=== PATIENT | male | born 1980 | race Caucasian/White ===

== ENCOUNTER 2019-07-09 12:41 | Emergency (ER) | payer BC ==
[~2019-07-09] VITALS: Ht 167.6 cm; Wt 77.1 kg
--- NOTE | 2019-07-09 12:43 | NUR ---
Patient to ER bed 06 to gown for evaluation. Side rails up.
--- NOTE | 2019-07-09 12:46 | NUR ---
Pt brought by self, A&Ox4, pt presents to ER with R upper arm pain radiating to R shoulder and R upper back, skin pink and warm,cap refill <3, VSS.
[2019-07-09 13:00] VITALS: BP_SYST 159
[2019-07-09] MEDS ORDERED: ASPIRIN 81 MG TAB.CHEW PO ONE (13:30)
--- NOTE | 2019-07-09 15:02 | NUR ---
BERT Oliva examining patient.
[2019-07-09] MEDS ORDERED: KETOROLAC TROMETHAMINE 60 MG/2 ML VIAL IM ONE (15:30)
[2019-07-09 15:34] LABS: CALCIUM 8.8 mg/dL (8.4-11.0); CREATININE 0.87 mg/dL (0.55-1.30); POTASSIUM 3.5 mmol/L (3.5-5.1)
[2019-07-09 15:35] LABS: BASOPHILS % (AUTO) 0.7 % (0.0-2.0); EOSINOPHILS % (AUTO) 0.6 % (0.0-4.0); HEMATOCRIT 49.3 % (36-54); HEMOGLOBIN 17.1 g/dL (14.0-18.0); LYMPHOCYTES # (AUTO) 0.8 K/uL (1.0-5.5); MEAN CORPUSCULAR HEMOGLOBIN 33 pg (27-31); MEAN CORPUSCULAR HGB CONC 35 % (32-36); MEAN CORPUSCULAR VOLUME 96 fL (79.0-98.0); MONOCYTES # (AUTO) 0.2 K/uL (0.0-1.0); MONOCYTES % (AUTO) 5.4 % (1.7-9.3); NEUTROPHILS # (AUTO) 3.1 K/uL (1.8-7.7); NEUTROPHILS % (AUTO) 74.3 % (40.0-70.0); PLATELET COUNT (AUTO) 118 K/uL (130-430); RED BLOOD CELL COUNT(AUTO) 5.16 MIL/uL (4.2-6.2); WHITE BLOOD COUNT (AUTO) 4.2 K/uL (4.8-10.8)
--- NOTE | 2019-07-09 16:10 | NUR ---
ER TAWNYA Oliva re examining patient and discussing results
--- NOTE | 2019-07-09 17:02 | NUR ---
Patient given written and verbal discharge instructions and verbalizes understanding. ER MD discussed with patient the results and treatment provided. Patient in stable condition. ID arm band removed. No Rx given. Patient educated on pain management and to follow up with PMD in 2-3 days. Pain Scale 0/10 Opportunity for questions provided and answered. Medication side effect fact sheet provided.
--- NOTE | 2019-07-15 15:21 | NUR ---
Vamsi diez in ED - 07/15/19 at 1816 by [email or web address] BERT Oliva examining patient.
[2019-07-15 17:02] VITALS: BP_SYST 142
--- NOTE | 2019-07-15 17:02 | NUR ---
Note leninone in EDM - 07/15/19 at 1815 by [email or web address] Patient given written and verbal discharge instructions and verbalizes understanding. ER discussed with patient the results and treatment provided. Patient in stable condition. ID arm band removed. No Rx given. Patient educated on pain management and to follow up with PMD in 2-3 days. Pain Scale 0/10 Opportunity for questions provided and answered. Medication side effect fact sheet provided.
== END 2019-07-09 19:30 | disposition home or self-care (01) ==
LOC: SED 12:41
DX: R07.89 Other chest pain (principal); R00.0 Tachycardia, unspecified; R03.0 Elevated blood-pressure reading, without diagnosis of hypertension
CPT/HCPCS: 36415; 71045; 80048; 84484; 85025; 85379; 93005; 96372; 99284; J1885

== ENCOUNTER 2023-01-22 11:55 | Emergency (ER) | payer BC ==
[~2023-01-22] VITALS: Ht 170.2 cm; Wt 79.4 kg
[2023-01-22 11:59] VITALS: BP_SYST 163
--- NOTE | 2023-01-22 14:48 | NUR ---
PT BIB SELF AWAKE AND ALERT AOX4, NO SOB OR DISTRESS. PT C/O CHEST PAIN ON AND OFF FOR X 5DAYS. PT HAS HX OF GERD, LIVER CHIROOSIS, BLADDER DISEASE. PT DENIES SX. PT WAS SINUS TACHY AT 110 BPM AT ARRIVAL TO ER BED.
--- NOTE | 2023-01-22 14:55 | NUR ---
Patient placed in ER BED 7 for MD evaluation PER DOCUMENTATION.
--- NOTE | 2023-01-22 15:12 | NUR ---
MD DR JEFF AT BEDSIDE
[2023-01-22 18:37] LABS: BASOPHILS % (AUTO) 0.4 % (0.0-2.0); EOSINOPHILS % (AUTO) 0.4 % (0.0-4.0); HEMOGLOBIN 17.2 g/dL (14.0-18.0); LYMPHOCYTES # (AUTO) 1.5 K/uL (1.0-5.5); LYMPHOCYTES % (AUTO) 22.3 % (20.5-51.5); MEAN CORPUSCULAR HEMOGLOBIN 32 pg (27-31); MEAN CORPUSCULAR HGB CONC 34 % (32-36); MEAN CORPUSCULAR VOLUME 93 fL (79.0-98.0); MONOCYTES # (AUTO) 0.4 K/uL (0.0-1.0); MONOCYTES % (AUTO) 5.5 % (1.7-9.3); NEUTROPHILS # (AUTO) 4.8 K/uL (1.8-7.7); NEUTROPHILS % (AUTO) 71.4 % (40.0-70.0); PLATELET COUNT (AUTO) 139 K/uL (130-430); RED BLOOD CELL COUNT(AUTO) 5.39 MIL/uL (4.2-6.2); WHITE BLOOD COUNT (AUTO) 6.7 K/uL (4.8-10.8)
[2023-01-22 18:41] LABS: ALANINE AMINOTRANSFERASE 24 U/L (12-78); ALBUMIN 4.4 g/dL (3.4-4.8); ANION GAP 9 (5-15); ASPARTATE AMINOTRANSFERASE 25 U/L (10-37); CALCIUM 8.8 mg/dL (8.4-11.0); CHLORIDE 102 mmol/L (98-107); CREATININE 0.83 mg/dL (0.55-1.30); GFR AFRICAN AMERICAN 132 mL/min (>90); GLUCOSE 109 mg/dL (70-99); TOTAL BILIRUBIN 1.2 mg/dL (0.0-1.0); UREA NITROGEN, BLOOD 12 mg/dL (8-21)
--- NOTE | 2023-01-22 19:30 | NUR ---
Note undone in EDM - 01/22/23 at 2026 by AYLINURAL Received verbal report from outgoing nurse DAMON Humphreys. Received pt awake and alert with at bedside, no s/s of discomfort noted. Pt's IV located on right AC patent and intact, no s/s of infiltration noted. Safety precautions in place.
--- NOTE | 2023-01-22 19:34 | NUR ---
Report given to Elysia collins. pt stable
--- NOTE | 2023-01-22 19:35 | NUR ---
Received verbal report from outgoing nurse DAMON Humphreys. Received pt awake and alert, no s/s of distress noted. Safety measures in place.
[2023-01-22] MEDS ORDERED: ESOM40CA53 PO (20:15)
[2023-01-22 20:23] VITALS: BP_SYST 132
--- NOTE | 2023-01-22 20:23 | NUR ---
Patient given written and verbal discharge instructions and verbalizes understanding. ER MD discussed with patient the results and treatment provided. Patient in stable condition. ID arm band removed. Rx of ESOMEPRAZOLE given. Patient educated on pain management and to follow up with PMD. Pain Scale 0/10. Opportunity for questions provided and answered. Medication side effect fact sheet provided.
== END 2023-01-22 20:23 | disposition home or self-care (01) ==
LOC: SED 11:55
DX: K21.9 Gastro-esophageal reflux disease without esophagitis (principal); F41.9 Anxiety disorder, unspecified; R07.2 Precordial pain; Z79.899 Other long term (current) drug therapy
CPT/HCPCS: 36415; 71046-TC; 80053; 83880; 84484; 85025; 85379; 99283; 99284